=== PATIENT | female | born 1950 | race African-American/Black ===

== ENCOUNTER → 2016-11-17 | Outpatient (CLI) | payer OTHER, MEDICARE ==
--- NOTE | 2016-11-17 10:37 | WOMENS IMAGING REPORT ---
EXAM DESCRIPTION: BONE DENSITY HIP/SPINE COMPLETED DATE/TIME: 11/17/2016 10:24 am REASON FOR STUDY: M81.0 OSTEO M81.0 AGE-RELATED OSTEOPOROSIS W/O CURRENT PATHOLOGICAL FRAC COMPARISON: None. TECHNIQUE: Dual-Energy X-ray Absorptiometry (DEXA) of the AP Spine and Hip. LIMITATIONS: None. FINDINGS: LUMBAR SPINE: The bone mineral density (BMD) measured from L1-L4 in the AP projection correlates with a T-score of -1.2, which is osteopenic as defined by the World Health Organization. HIP: The bone mineral density (BMD) measured in the left femoral neck at the hip correlates with a T-score of -0.8, which is normal as defined by the World Health Organization. COMMENT: The World Health Organization defines low BMD as follows: T-score: Normal: Greater than -1.0 Osteopenia: Between -1.0 and -2.5 Osteoporosis: Less than -2.5 without fractures Established osteoporosis: Less than -2.5 with fractures In general, you may wish to consider: Diagnosis Treatment Follow-up DEXA Normal BMD Prevention 2-3 years Osteopenia Prevention/Therapy 1-2 years Osteoporosis Therapy Yearly TECHNICAL DOCUMENTATION: JOB ID: [id number] [employer]- All Rights Reserved
== END ==
LOC: WI 09:57
PROVIDERS: ATTEND Internal Medicine
DX: M81.0 Age-related osteoporosis without current pathological fracture (principal)
CPT/HCPCS: 77080

== ENCOUNTER → 2016-11-19 | Outpatient (CLI) | payer OTHER, MEDICARE | LOC: RAD 10:37 | PROVIDERS: ATTEND Internal Medicine | DX: Z08 Encounter for follow-up examination after completed treatment for malignant neoplasm (principal); Z85.9 Personal history of malignant neoplasm, unspecified | CPT/HCPCS: 78472; A9538; Q9969 ==

== ENCOUNTER 2017-09-16 08:02 | Outpatient (CLI) | payer MEDICARE, OTHER ==
[~2017-09-16 08:02] MED LIST: ACETAMINOPHEN 325 MG TABLET PO PRN; DIPHENHYDRAMINE HCL 25 MG CAPSULE PO PRN; IRON DEXTRAN COMPLEX 25 MG in SYRINGE, DISPOSABLE, 1 EACH IV PRN; IRON DEXTRAN COMPLEX 975 MG in NORMAL SALINE 1000 ML 1,000 ML IV PRN; NORMAL SALINE 250 ML IV PRN
[2017-09-16 08:17] VITALS: BP 141/83
== END 2017-09-16 13:26 | disposition home or self-care (01) ==
LOC: II 08:02 → 5TH 08:04 → II 13:26
PROVIDERS: ATTEND Internal Medicine
PROC: 3E043GC Introduction of Other Therapeutic Substance into Central Vein, Percutaneous Approach (ICD-10-PCS; principal; 2017-09-16)
DX: D50.8 Other iron deficiency anemias (principal)
CPT/HCPCS: 96365; 96366; 96367; 96374; 96523; A9270 ×2; J1750; J7030; J3490; 96375

== ENCOUNTER → 2018-01-05 | Outpatient (CLI) | payer OTHER, MEDICARE ==
--- NOTE | 2018-01-05 11:03 | WOMENS IMAGING REPORT ---
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 TECHNIQUE: Standard craniocaudal and mediolateral oblique views of each breast recorded using digita l acquisition and breast tomosynthesis. Additional true lateral and compression magnification MLO and CC views of the right breast acquired. LIMITATIONS: None. FINDINGS: RIGHT BREAST MASSES: No suspicious masses. CALCIFICATIONS: No new or suspicious calcifications. ARCHITECTURAL DISTORTION: Surgical changes. DEVELOPING DENSITY: None. ASYMMETRY: None noted. OTHER: No other significant findings. LEFT BREAST MASSES: No suspicious masses. CALCIFICATIONS: No new or suspicious calcifications. ARCHITECTURAL DISTORTION: None. DEVELOPING DENSITY: None. ASYMMETRY: None noted. OTHER: No other significant finding. Read with the assistance of CAD: .[facility] - R2 Cenova Version 1.3 .[facility] - R2 Cenova Version 1.3 .[facility] - R2 Cenova Version 2.4 .[facility] - R2 Cenova Version 2.4 .[facility] - R2 Surgical Elastic Knitter Hand Frame Version 9.2 IMPRESSION: Surgical changes in the right breast post lumpectomy. Stable mammographic appearance of the left breast. No unexpected or worrisome findings. BREAST DENSITY: c. The breasts are heterogeneously dense, which may obscure small masses. BIRAD: 2 Benign findings. RECOMMENDATION: RECOMMENDED FOLLOW UP: Post lumpectomy protocol. COMMENT: The patient has been notified of the results by letter per SA requirements. Additional no tification policies are in place for contacting patient with suspicious or incomplete findings. Quality ID #[id number]: The [employer] recommends an annual screening mammogram for women aged 40 years or over. This facility utilizes a reminder system to ensure that all patients receive reminder letters, and/or direct phone calls for appointments. This includes reminders for routine scr eening mammograms, diagnostic mammograms, or other Breast Imaging Interventions when appropriate. Th is patient will be placed in the appropriate reminder system. The [employer] (ACR) has developed recommendations for screening MRI of the breast s in certain patient populations, to be used in conjunction with mammography. Breast MRI surveillanc e may be appropriate for women with more than 20% lifetime risk of developing breast cancer as deter mined by genetic testing, significant family history of the disease, or history of mantle radiation f or Hodgkins Disease. ACR Practice Guidelines 2008. DBT Technology DBT is a type of tomographic mammography. With conventional mammography, overlapping breast tissue ma y make lesions difficult to detect, even with good compression. DBT uses an x-ray tube that rotates a round the breast, taking images at different angles. These images are then combined to create thin sl ices of the breast that the radiologist can view as a 3D reconstruction. The [employer] unit can perform full-field digital mammograms (2D imaging); or DBT (3D imaging); or both, in a combination mode that quickly performs both the mammogram and the tomosynthesis scan while the breast is still compressed. PQRS 6045F: Fluoroscopic imaging is not utilized for breast tomosynthesis. TECHNICAL DOCUMENTATION: FINDING NUMBER: (1) ASSESSMENT: (1) JOB ID: [id number] [employer]- All Rights Reserved Reading location - IP/workstation name: [facility]
== END ==
LOC: WI 11:00
PROVIDERS: ATTEND Radiology Radiation Oncology
DX: C50.411 Malignant neoplasm of upper-outer quadrant of right female breast (principal); C77.3 Secondary and unspecified malignant neoplasm of axilla and upper limb lymph nodes
CPT/HCPCS: 77066; G0279; 77062

== ENCOUNTER → 2019-01-09 | Outpatient (CLI) | payer MEDICARE, OTHER ==
--- NOTE | 2019-01-09 10:22 | WOMENS IMAGING REPORT ---
EXAM DESCRIPTION: BILAT DIAGNOSTIC MAMMO W/CAD COMPLETED DATE/TIME: 01/09/2019 10:03 am REASON FOR STUDY: C50.511 MALIGNANT NEOPLASM OF LOQ OF RIGHT FEMALE BREAST C50.511 MALIG NEOPLM OF LOWER-OUTER QUADRANT OF RIGHT FEMALE COMPARISON: Digital diagnostic tomosynthesis bilateral mammogram dated 01/05/2018. TECHNIQUE: Standard craniocaudal and mediolateral oblique views of each breast recorded using Benzingaa l acquisition. LIMITATIONS: None. FINDINGS: RIGHT BREAST MASSES: No suspicious masses. CALCIFICATIONS: No new or suspicious calcifications. ARCHITECTURAL DISTORTION: Post surgical changes at the lumpectomy site, stable findings. DEVELOPING DENSITY: None. ASYMMETRY: None noted. OTHER: No other significant findings. LEFT BREAST MASSES: No suspicious masses. CALCIFICATIONS: No new or suspicious calcifications. ARCHITECTURAL DISTORTION: None. DEVELOPING DENSITY: None. ASYMMETRY: None noted. OTHER: The patient's port device overlies the axilla obscuring detail somewhat. Read with the assistance of CAD: .[facility] - R2 Cenova Version 1.3 .[facility] Imaging - R2 Cenova Version 2.1 .[facility] - R2 Cenova Version 2.4 .[facility] - R2 Cenova Version 2.4 .[facility] - R2 Cooperative Education Director Version 9.2 IMPRESSION: 1. Stable examination since the prior study dated 01/05/2018. BREAST DENSITY: c. The breasts are heterogeneously dense, which may obscure small masses. BIRAD: 2 Benign findings. RECOMMENDATION: 1. Post lumpectomy protocol. COMMENT: The patient has been notified of the results by letter per SA requirements. Additional no tification policies are in place for contacting patient with suspicious or incomplete findings. Quality ID #[id number]: The [employer] recommends an annual screening mammogram for women aged 40 years or over. This facility utilizes a reminder system to ensure that all patients receive reminder letters, and/or direct phone calls for appointments. This includes reminders for routine scr eening mammograms, diagnostic mammograms, or other Breast Imaging Interventions when appropriate. Th is patient will be placed in the appropriate reminder system. The [employer] (ACR) has developed recommendations for screening MRI of the breast s in certain patient populations, to be used in conjunction with mammography. Breast MRI surveillanc e may be appropriate for women with more than 20% lifetime risk of developing breast cancer as deter mined by genetic testing, significant family history of the disease, or history of mantle radiation f or Hodgkins Disease. ACR Practice Guidelines 2008. TECHNICAL DOCUMENTATION: FINDING NUMBER: (1) ASSESSMENT: (1) JOB ID: [id number] [employer]- All Rights Reserved Reading location - IP/workstation name: [email or web address]
== END ==
LOC: WI 09:14
PROVIDERS: ATTEND Internal Medicine
DX: C50.511 Malignant neoplasm of lower-outer quadrant of right female breast (principal)
CPT/HCPCS: 77066

== ENCOUNTER → 2019-03-08 | Outpatient (CLI) | payer MEDICARE, OTHER ==
--- NOTE | 2019-03-08 09:30 | DRAGON STRESS TEST REPORT ---
EXERCISE TREADMILL TEST. DATE OF PROCEDURE: March 08, 2019 INDICATION: Fatigue Resting EKG: Sinus rhythm, no baseline ST segment changes. Stress EKG: Borderline baseline ST segment changes noted probably artifact. Reason for termination: Dyspnea and fatigue. PROCEDURE REPORT: Baseline heart rate: 96 beats per minute with blood pressure of 155/80. Patient had no significant complaints at baseline. Patient was exercised on a standard Jens protocol. Patient exercised for total of 1 minute and 48 seconds. Exercise was stopped because of fatigue and shortness of breath. Patient denied any chest arm or neck discomfort during the exercise, at peak exercise or in recovery. If automatic blood pressure recorded and if felt not accurate manual blood pressure then were recorded at appropriate intervals. Peak heart rate: 141 bpm, more than 85% of predicted maximum. Peak blood pressure: Could not be obtained at peak exercise. Recovery blood pressure was 190/80. Double product: Quit kcal Exercise EKG: Showed some baseline artifact during exercise but no significant ST segment changes set for some borderline abnormalities most likely related to artifacts. Noted. CONCLUSIONS: Marked exercise intolerance noted. Determination about ischemia cannot be made if exercise tolerance is very limited. RECOMMENDATIONS: Pharmacologic nuclear stress test, can be scheduled through my office if needed. Aggressive risk factor modification, medical therapy. Consider cardiology consultation if clinically indicated. Rosario Sheehan M.D., [employer]EL Link Assembler cocoa butter filter operator, Board certified in cardiovascular diseases, Nuclear cardiology, Echocardiography Cardiac CT and cardiac MRI Ph. [phone] Ph. [phone] [facility]
== END ==
LOC: SP 08:37
PROVIDERS: ATTEND Family Medicine
DX: R07.9 Chest pain, unspecified (principal); R06.02 Shortness of breath; I10 Essential (primary) hypertension; E11.9 Type 2 diabetes mellitus without complications; E78.00 Pure hypercholesterolemia, unspecified
CPT/HCPCS: 93017

== ENCOUNTER → 2019-07-24 | Outpatient (CLI) | payer MEDICARE, OTHER ==
--- NOTE | 2019-07-24 12:12 | WOMENS IMAGING REPORT ---
EXAM DESCRIPTION: BONE DENSITY HIP/SPINE COMPLETED DATE/TIME: 07/24/2019 9:29 am REASON FOR STUDY: M81.0 BONE DENSITY M81.0 AGE-RELATED OSTEOPOROSIS W/O CURRENT PATHOLOGICAL FRAC COMPARISON: 2017 TECHNIQUE: Dual-Energy X-ray Absorptiometry (DEXA) of the AP Spine and Hip. LIMITATIONS: None. FINDINGS: LUMBAR SPINE: The bone mineral density (BMD) measured from L1-L4 in the AP projection correlates with a T-score of -1.4, which is osteopenic as defined by the World Health Organization. BMD Change vs Baseline: This is not statistically significantly different from 2017 HIP: The bone mineral density (BMD) measured in the left femoral neck at the hip correlates with a T-score of -0.7, which is normal as defined by the World Health Organization. BMD Change vs Baseline: This is not statistically significantly different from 2017 10 year Fracture Risk Assessment: Major Osteoporotic Fracture: 7.2% Hip Fracture: 0.5% IMPRESSION: 1. LUMBAR SPINE WHO CLASSIFICATION: Osteopenic 2. HIP WHO CLASSIFICATION: Normal OVERALL ASSESSMENT: WHO CLASSIFICATION: Osteopenia COMMENT: The World Health Organization defines low BMD as follows: T-score: Normal: Greater than -1.0 Osteopenia: Between -1.0 and -2.5 Osteoporosis: Less than -2.5 without fractures Established osteoporosis: Less than -2.5 with fractures In general, you may wish to consider: Diagnosis Treatment Follow-up DEXA Normal BMD Prevention 2-3 years Osteopenia Prevention/Therapy 1-2 years Osteoporosis Therapy Yearly TECHNICAL DOCUMENTATION: JOB ID: [id number] [employer]- All Rights Reserved Reading location - IP/workstation name: [email or web address]
== END ==
LOC: RAD 08:40
PROVIDERS: ATTEND Internal Medicine
DX: M81.0 Age-related osteoporosis without current pathological fracture (principal)
CPT/HCPCS: 77080

== ENCOUNTER → 2019-08-30 | Outpatient (CLI) | payer MEDICARE, OTHER ==
--- NOTE | 2019-08-30 14:42 | RADIOLOGY REPORT (SQ) ---
EXAM DESCRIPTION: ELBOW LEFT >2 VIEWS COMPLETED DATE/TIME: 08/30/2019 2:01 pm REASON FOR STUDY: PAIN IN LEFT ELBOW M25.522 PAIN IN LEFT ELBOW COMPARISON: None. NUMBER OF VIEWS: Four views. TECHNIQUE: AP, lateral, and both oblique radiographic images acquired of the left elbow. LIMITATIONS: None. FINDINGS: MINERALIZATION: Normal. BONES: No acute fracture or dislocation. No worrisome bone lesions. JOINT: No effusion. SOFT TISSUES: No soft tissue swelling. No foreign body. OTHER: No other significant finding. IMPRESSION: NEGATIVE STUDY OF THE LEFT ELBOW. NO RADIOGRAPHIC EVIDENCE OF ACUTE INJURY. TECHNICAL DOCUMENTATION: JOB ID: [id number] [employer]- All Rights Reserved Reading location - IP/workstation name: [email or web address]
== END ==
LOC: OD 13:47
PROVIDERS: ATTEND Family Medicine
DX: M25.522 Pain in left elbow (principal)

== ENCOUNTER → 2020-04-03 | Outpatient (CLI) | payer MEDICARE, OTHER ==
--- NOTE | 2020-04-03 10:17 | WOMENS IMAGING REPORT ---
EXAM DESCRIPTION: BILAT DIAGNOSTIC MAMMO W/CAD IMAGES COMPLETED DATE/TIME: 04/03/2020 9:10 am REASON FOR STUDY: C50.511 BILAT DX Z12.31 ENCNTR SCREEN MAMMOGRAM FOR MALIGNANT NEOPLASM OF JILLIAN C50 .511 MALIG NEOPLM OF LOWER-OUTER QUADRANT OF RIGHT FEMALE COMPARISON: 2017, 2018 EXAM PARAMETERS: Standard craniocaudal and mediolateral oblique views of each breast recorded using digital acquisition. True lateral exaggerated CC and cone compression views right breast. Read with the assistance of CAD: .[employer] - [employer] Portfolio Manager Version 9.2 LIMITATIONS: Left-sided port. FINDINGS: RIGHT BREAST MASSES: No suspicious masses. CALCIFICATIONS: No new or suspicious calcifications. ARCHITECTURAL DISTORTION: Associated with lumpectomy, stable. ASYMMETRY: None noted. OTHER: No other significant findings. LEFT BREAST MASSES: No suspicious masses. CALCIFICATIONS: No new or suspicious calcifications. ARCHITECTURAL DISTORTION: None. ASYMMETRY: None noted. OTHER: No other significant finding. IMPRESSION: Stable mammographic pattern. BREAST DENSITY: b. There are scattered areas of fibroglandular density. BIRAD: ASSESSMENT: 2 Benign findings. RECOMMENDATION: RECOMMENDED FOLLOW UP: Annual mammographic follow-up. SPECIFIC INTERVENTION/IMAGING/CONSULTATION RECOMMENDED:No additional intervention/ imaging/consultati on needed at this time. COMMUNICATION:The imaging findings were not discussed with the patient. Her referring provider has be en notified of the findings. COMMENT: The patient has been notified of the results by letter per MQSA requirements. Additional no tification policies are in place for contacting patient with suspicious or incomplete findings. Quality ID #225: The [employer] recommends an annual screening mammogram for women aged 40 years or over. This facility utilizes a reminder system to ensure that all patients receive reminder letters, and/or direct phone calls for appointments. This includes reminders for routine scr eening mammograms, diagnostic mammograms, or other Breast Imaging Interventions when appropriate. Th is patient will be placed in the appropriate reminder system. TECHNICAL DOCUMENTATION: FINDING NUMBER: (1) ASSESSMENT: (1) JOB ID: [id number] [employer]- All Rights Reserved Reading location - IP/workstation name: [email or web address]
== END ==
LOC: WI 08:25
PROVIDERS: ATTEND Physician Assistant Medical
DX: Z12.31 Encounter for screening mammogram for malignant neoplasm of breast (principal); C50.511 Malignant neoplasm of lower-outer quadrant of right female breast
CPT/HCPCS: 77066